=== PATIENT | male | born 1950 | race Caucasian/White ===

== ENCOUNTER 2022-03-02 09:29 | Emergency (ER) | payer MEDICARE, SELFPAY ==
[2022-03-02] VITALS (14 sets, daily range): BP systolic 123–185; BP diastolic 70–102; PULSE 57–69; RESP 12–19; TEMP 36.2–36.4; O2SAT 95–100
--- NOTE | ~2022-03-02 | XR_ITS ---
EXAMINATION: XR shoulder RT min 2V DATE: 03/02/2022 13:07 INDICATION: Right shoulder arthroplasty dislocation status post reduction. TECHNIQUE: 2 views of right shoulder were obtained. COMPARISON: Right shoulder radiographs at 9:55 AM FINDINGS: There is a reverse [id number] total right shoulder arthroplasty. The humeral component demonstrates superior dislocation relative to the glenoid component. 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 No fracture. IMPRESSION: 1. Dislocated total right shoulder arthroplasty with humeral component superior to the glenoid compon ent. Reviewed, dictated and finalized at location A. LE INSPECTOR IMPRESSION: 1. Dislocated total right shoulder arthroplasty with humeral component superior to the glenoid component.
--- NOTE | ~2022-03-02 | XR_ITS ---
EXAMINATION: XR shoulder RT min 2V DATE: 03/02/2022 09:57 INDICATION: Right shoulder injury and pain. TECHNIQUE: 4 views of right shoulder were obtained. COMPARISON: None. FINDINGS: There is a reverse [id number] total right shoulder arthroplasty. There is anterior dis location of the humeral compatible with respect to the glenoid component. No periprosthetic lucency t o suggest loosening or infection. No fracture. There is severe osteoarthritis of acromioclavicular archie int. IMPRESSION: 1. Anterior dislocation of the total right shoulder arthroplasty. 2. Severe acromioclavicular joint osteoarthritis. Reviewed, dictated and finalized at location A. ER LINER
--- NOTE | ~2022-03-02 | XR_ITS ---
EXAMINATION: XR shoulder RT min 2V DATE: 03/02/2022 13:45 INDICATION: Postreduction right shoulder dislocation. TECHNIQUE: AP and oblique views of the right shoulder were obtained. COMPARISON: 03/02/2022 at 1:00 PM FINDINGS: Interval reduction of a previously dislocated reverse right total shoulder arthroplasty which now mami ears in near-anatomic alignment. No fracture. Severe acromioclavicular osteoarthritis with prominent anterior subacromial spur. IMPRESSION: Successful reduction of previously dislocated reverse right total shoulder arthroplasty. Reviewed, dictated and finalized at location A. MIDWIFE IMPRESSION: Successful reduction of previously dislocated reverse right total shoulder arth roplasty.
--- NOTE | 2022-03-02 10:01 | ED.UPPEXIN ---
HPI - Extremity Injury (Upper) General Chief Complaint: Extremity Injury, Upper <Jonel Garcia APRN - Last Filed: 03/02/22 14:36> Stated Complaint: R SHOULDER INJURY AT SURGICAL SITE <Jonel Garcia APRN - Last Filed: 03/02/22 14:36> Time Seen by Provider: 03/02/22 09:34 <Jonel Garcia APRN - Last Filed: 03/02/22 14:36> History of Present Illness HPI narrative: 72-year-old male presents to the emergency room for evaluation of right shoulder injury. Patient states December 2021, he had a reverse shoulder replacement in [facility]. Patient states since he has since moved to the [facility] and has not reestablished with another orthopedist. States this morning he rolled out of bed and pushed off his right shoulder and felt a pop. Patient states that he is got limited range of motion with the shoulder, pain is worse with any types of movement. <Jonel Garcia APRN - Last Filed: 03/02/22 14:36> Related Data Allergies/Adverse Reactions: Allergies Allergy/AdvReac Type Severity Reaction Status Date / Time No Known Allergies Allergy Verified 03/02/22 10:32 <Jonel Garcia APRN - Last Filed: 03/02/22 14:36> Review of Systems Review of Systems: CONSTITUTIONAL: Denies fever, chills, or sweats. EYES: Denies visual changes, redness, or discharge. ENT: Denies rhinorrhea, congestion, sore throat, or otalgia. CARDIOVASCULAR: Denies chest pain, palpitations, or edema. RESPIRATORY: Denies cough or dyspnea. GASTROINTESTINAL: Denies abdominal pain, nausea, vomiting, or diarrhea. GENITOURINARY: Denies dysuria or hematuria. SKIN: Denies rash or itching. MUSCULOSKELETAL: Reports right shoulder pain. NEUROLOGIC: Denies headache, numbness, dizziness, or weakness. PSYCHIATRIC: Denies anxiety or depression. <Jonel Garcia APRN - Last Filed: 03/02/22 14:36> Exam Narrative: GENERAL: Well-appearing, well-nourished, no physical limitations, and in no acute distress. HEAD: Normocephalic, atraumatic. EYES: Conjunctivae normal, PERRLA and EOMI. ENT: External nose normal, Nares clear, no rhinorrhea or epistaxis. Mucous membranes moist. Oropharynx without tonsillar hypertrophy exudate or other lesions. External ears normal, bilateral TMs normal bilaterally NECK: Supple. No meningeal signs. No adenopathy or masses. No carotid bruits or JVD CHEST: Clear to auscultation. No respiratory distress. No wheezes rales or rhonchi. No tenderness. HEART: Regular rate and rhythm. No murmur heard. Normal peripheral pulses. ABDOMEN: Soft, nontender, nondistended, normal active bowel sounds. : Normal external male/female exam. BACK: No CVA tenderness; No cervical/thoracic/lumbar tenderness, step-offs, bony abnormality; FROM EXTREMITIES: rt shoulder: SKIN: Warm, dry, no rash. No noted wounds NEURO: No focal deficits. Alert and oriented x3. MAEW. CN's II-XI intact bilaterally, normal gait PSYCH: Cooperative. Normal mood and affect. <Jonel Garcia, CART DRIVER - Last Filed: 03/02/22 14:36> Course Course Emergency Course: 1100: Spoke to orthopedic surgeon Dr. Gaston of [facility]. He recommends reducing the patient's shoulder here in the emergency room and having the patient follow-up with tomorrow in his office. <Jonel Garcia, CART DRIVER - Last Filed: 03/02/22 14:36> ROOF PROMENADE TILE SETTER/PA Physician Supervision For this patient encounter, I reviewed the ROOF PROMENADE TILE SETTER or PA documentation, treatment plan, and medical decision making and I had [id number] time with this patient. 72M w/recent R shoulder arthroplasty, presenting with R shoulder pain, found to have anterior dislocation. Neurovascularly intact. Ortho consulted, recommends reduction in ED. Pt underwent conscious sedation with R shoulder reduction without complication. Post-reduction films shows inadequate reduction so pt again sedated with 50mg propofol. Right shoulder successfully reduced on second attempt. Remains neurovascularly intact. Placed in immobilizer. Will
[2022-03-02] MEDS: HYDROmorphone HCL INJ (*CRX) 1 MG/ML SYR IV PUSH (10:09)
[2022-03-02] MEDS: Please add drug allergy info to patient profile. XX (10:32)
[2022-03-02] MEDS: PROPOFOL IV EMULSION 200 MG/20 ML VIAL ×2 (12:53→14:07)
--- NOTE | 2022-03-02 13:09 | PC.NURSE ---
1253 [address] Fink
[2022-03-02] MEDS: SODIUM CHLORIDE 0.9% IV 1,000 ML 999 ML (13:17)
--- NOTE | 2022-03-02 13:31 | PC.NURSE ---
50 mg of propofol administered by Dr. Fink
== END 2022-03-02 15:35 | disposition home or self-care (01) ==
PROVIDERS: Emergency Provider Nurse Practitioner Family
DX: S43.016A Anterior dislocation of unspecified humerus, initial encounter (principal); X50.0XXA Overexertion from strenuous movement or load, initial encounter
CPT/HCPCS: 23650; 73030; 96374; 96375; 99285; J1170; J2704; J7030

== ENCOUNTER 2022-08-20 10:55 | Outpatient (CLI) | payer MEDICARE, SELFPAY ==
[2022-08-20 11:14] LABS: Appearance Urine Clear (Clear); Bilirubin Urine Negative (Negative); Blood Urine Negative (Negative); Color Urine Yellow (Yellow); Glucose Urine UA Negative (Negative); Ketones Urine Negative (Negative); Leukocyte Esterase Ur Negative LEU/UL (NEGATIVE); Nitrate Urine Negative (Negative); Protein Urine Negative (Negative); Urobilinogen Urine 0.2 mg/dL (<2.0)
[2022-08-20 11:21] LABS: Add Urine Microscopic? NO
== END 2022-08-20 10:56 | disposition home or self-care (01) ==
PROVIDERS: PCP Internal Medicine; Visit Provider Physician Assistant
DX: R30.0 Dysuria (principal)
CPT/HCPCS: 81003; 87086